=== PATIENT | male | born 1960 | race Caucasian/White ===

== ENCOUNTER 2018-01-23 10:45 | Observation (INO) | payer OTHER ==
[~2018-01-23] VITALS: Ht 182.9 cm; Wt 102.1 kg
[2018-01-23] VITALS (11 sets, daily range): BP systolic 116–147; BP diastolic 67–79
--- NOTE | ~2018-01-23 | H ---
[address] [address] HISTORY AND PHYSICAL Name: PHU WOLFF Room: [address] Alyssa Magallon#: [id number] Admission: 01/23/18 Attend Phys: Herman Galindo MD, Discharge: 01/24/18 Date of : 64 Report #: [id number] THIS REPORT FOR: //name// Please refer to the History and Physical performed in the physician's office. By: 0859Medical Records Staff MARY ANN /PHILIPPE
[~2018-01-23 10:45] MED LIST: ASPIR 8181 MG PO; ATORVASTATIN CA40 MG PO; BRILINTA90 MG PO; COSOPT EYE OPHTHALMIC; EYE MEDICATION; LOPRESSOR25 PO; NITROGLYCERIN0.4 MG SUBLING; ZYLOPRIM 300 MG PO
[2018-01-23 11:33] LABS: HEMATOCRIT 48.2 % (42.0-52.0); HEMOGLOBIN 16.7 gm/dL (14.0-18.0); MCH 32.1 pg (26.0-34.0); MCHC 34.5 g/dL (28.0-37.0); MCV 93.1 fL (80.0-100.0); MPV 7.6 fl. (7.2-11.1); RBC 5.18 mil/uL (4.50-6.00); RDW-CV 13.8 % (10.5-14.5); WBC 5.3 thou/uL (4.0-11.0)
[2018-01-23 11:41] LABS: ANION GAP 9 mmol/L (7-16); BUN 10 mg/dL (7-18); CALCIUM 9.7 mg/dL (8.5-10.1); CHLORIDE 104 mmol/L (98-107); CO2 26 mmol/L (21-32); GLUCOSE 109 mg/dL (70-99); SODIUM 139 mmol/L (136-145)
[2018-01-23 11:43] LABS: APTT 26.7 Seconds (25.0-31.3); INR 1.1; PROTIME 10.3 Seconds (9.20-11.50)
[2018-01-23 11:45] LABS: ALBUMIN 4.2 g/dL (3.4-5.0); ALKALINE PHOSPHATASE 98 U/L (46-116); CHOLESTEROL 145 mg/dL (<200); HDL CHOLESTEROL 33 mg/dL (>40); LDL CHOLESTEROL 41 mg/dL (<100); SGOT 30 U/L (15-37); SGPT 53 U/L (30-65); TC:HDL 4.4 Ratio (Not establshd); TOTAL BILIRUBIN 0.7 mg/dL (<0.1-1.0); TOTAL PROTEIN 8.4 g/dL (6.4-8.2); TRIGLYCERIDE 356 mg/dL (<150); VLDL 71 mg/dL (<40)
[2018-01-23 11:47] LABS: SERUM ASSESSMENT Clear
[2018-01-23] MEDS ORDERED: PLAVIX 75 MG TA75 M1 PO (11:50)
--- NOTE | 2018-01-23 15:23 | EKG ---
[place] [address] ELECTROCARDIOGRAM REPORT Name: PHU WOLFF Room: [address] IN .R.#: [id number] Admission: 01/23/18 Attend Phys: Herman Galindo MD, Discharge: Date of : 64 Report #: [id number] THIS REPORT FOR: //name// [facility] Test Date: 2018-01-23 Test Time: 11:20:35 Pat Name: PHU WOLFF Department: Room: Gender: General Doc: : 1960 Requested By: Herman Galindo Order Number: [id number] Reading MD: Herman Galindo Measurements Intervals [place] Rate: 57 P: 53 DC: 163 QRS: 31 QRSD: 100 T: 58 QT: 425 QTc: 414 Interpretive Statements Sinus rhythm Normal EKG Electronically Signed On 01-23-2018 15:23:38 CDT by Herman Galindo [email or web address] <ELECTRONICALLY SIGNED> By: Herman Galindo MD, [facility] 01/23/18 1523 1120 1120 Herman Galindo MD, FACC /EPI
--- NOTE | 2018-01-23 15:24 | EKG ---
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
--- NOTE | 2018-01-23 18:47 | NUR ---
PT ARRIVED TO ROOM 206 AT APPROX 1420 POST CATH. RIGHT GROIN SITE HAS DRESSING C/D/I, SOFT, NON TENDER, NO BRUISING OR HEMATOMA. VSS, SB ON THE MONITOR IN THE 50'S. PT ON ANGIOMAX ON ARRIVAL INSTRUCTED TO RUN UNTIL [address] GARCIA. ADMISSION ASSESMENT DONE CHARTED. PT USES CALL LIGHT APPROPRIALTY. INSTRUCTED BEDREST UNTIL 2000 TONIGHT. WILL CONTINUE TO MONITOR.
--- NOTE | 2018-01-23 19:30 | NUR ---
RECEIVED REPORT AND ASSUMED CARE OF PT, ASSESSMENT COMPLETED. RT GROIN INTACT, NO DRAINAGE, ECCHYMOSIS OR HEMATOMA. DRSG DRY AND INTACT, AREA SOFT. INSTRUCTED PT ON MONITORING SITE WHEN ALLOWED UP. DENIES CHEST PAIN OR SOB. TELEMETRY ON SHOWING SR. WILL CONT TO MONITOR AND ASSIST NEEDED.
[2018-01-24] VITALS: BP 110/56
[2018-01-24 00:05] VITALS: BP 110/56
[2018-01-24 04:00] VITALS: BP 105/60
[2018-01-24 04:44] LABS: HEMATOCRIT 42.7 % (42.0-52.0); MCH 31.7 pg (26.0-34.0); MCHC 34.2 g/dL (28.0-37.0); MCV 92.8 fL (80.0-100.0); MPV 7.7 fl. (7.2-11.1); RBC 4.6 mil/uL (4.50-6.00); RDW-CV 13.5 % (10.5-14.5); WBC 5.5 thou/uL (4.0-11.0)
[2018-01-24 04:59] LABS: HEMOGLOBIN 14.6 gm/dL (14.0-18.0)
[2018-01-24 05:08] LABS: ALBUMIN 3.4 g/dL (3.4-5.0); CALCIUM 8.8 mg/dL (8.5-10.1); POTASSIUM 4.3 mmol/L (3.5-5.1); TOTAL BILIRUBIN 0.5 mg/dL (<0.1-1.0); TOTAL PROTEIN 6.6 g/dL (6.4-8.2); TROPONIN-I LEVEL 0.08 ng/mL (<0.06)
--- NOTE | 2018-01-24 05:55 | NUR ---
SLEPT WELL TONIGHT. ASSISTED TO BR WITH STEADY GAIT. RT GROIN UNCHANGED, CONT TO HAVE LARGE HEMATOMA. TELEMETRY CONT TO SHOW SR WITH FREQ PAC. HS GOALS OF REST AND COMFORT ACHIEVED. HOURLY ROUNDING OBSERVED.
--- NOTE | 2018-01-24 05:59 | NUR ---
SLEPT WELL TONIGHT. INDEPENDENT BRP WITH STEADY GAIT. RT GROIN REMAINS SOFT WITHOUT INCIDENT. TELEMETRY CONT TO SHOW SB. HS GOALS OF REST AND SAFETY OBTAINED. HOURLY ROUNDING OBSERVED.
[2018-01-24 07:50] VITALS: BP 120/67
--- NOTE | 2018-01-24 07:50 | NUR ---
RECEIVED REPORT FROM VEE AND ASSUMED CARE OF PT @ 8154.PT IS A/O,VSS,TRACING SB ON THE MONITOR.LUNG SOUNDS ARE CLEAR.LAST BM WAS YESTERDAY.IV RIGHT AC PATENT WITH NS RUNNING @ 125ML/HR.PT IS CALM AND COOPERATIVE WITH NO C/O PAIN AT TIME OF ASSESSMENT.PT IS UP ERLIN IN ROOM.PT LEFT RESTING IN BED WITH CALL LIGHT WITHIN REACH.WILL CONTINUE TO MONITOR.FAMILY AT BEDSIDE.
--- NOTE | 2018-01-24 10:31 | CARD ---
[address] [address] CARDIAC CATH REPORT Name: PHU WOLFF Room: [address] ADM IN M.R.#: [id number] Admission: 01/23/18 Attend Phys: Herman Galindo MD, Discharge: Date of : 64 Report #: [id number] THIS REPORT FOR: //name// APPROVED REPORT Study performed: 01/23/2018 12:04:22 Patient Details Patient Status: OP Room #: 206 The patient is a 57 year-old male Event Personnel Herman Galindo Account Support Specialist, Melody Luong, Kevin Gann (Angela Keys Makenzie RN Phosphorus Processing Supervisor Procedures Performed Art Access - R femoral artery* Left Heart Cath w/or w/o Coronaries [id number] [facility] JANESSA Place w/wo Plasty Single LAD 505254 JANESSA Place w/wo Plasty Single Left Main 255140 ; atherectomy of the ostium of the second diagonal branch, Left Ventriculogram Indication Unstable angina Risk Factors Family History, Hypercholesterolemia, Hypertension Previous Procedures/Diagnoses Previous PCI Admission/Lab Medications/Medications given during procedure Aspirin, Platelet Aff. Inhib., Angiomax bolus and infusion Procedure Narrative The patient was brought electively to the Cardiac Catheterization Laboratory and was prepped and draped in a sterile manner. The right femoral was infiltrated with 2% Lidocaine subcutaneous anesthesia. A Winslow 6 FR sheath was inserted into the right femoral artery. Coronary angiography was performed using coronary diagnostic catheters. The right coronary system was accessed and visualized with a Diagnostic 6fr JR 4 catheter. The left coronary system was accessed and visualized with a Diagnostic 6fr JL 4 catheter. The left ventricle was accessed and visualized with a Diagnostic 6fr pigtail catheter. Left ventricular/Aortic Valve gradient assessed via catheter pullback. [place] [address] CARDIAC CATH REPORT Name: PHU WOLFF Room: [address] IN [facility].#: [id number] Admission: 01/23/18 Attend Phys: Herman Galindo MD, Discharge: Date of : 64 Report #: [id number] projection. Pre-demployment femoral angiogram was performed . Closure device was deployed with a 6 Fr Angioseal. The patient tolerated the procedure well and there were no complications associated with the procedure. Intraoperative Conscious Sedation Sedation start time: 12:08 Case end Time: 13:40 Fentanyl 50 mcg Versed 2 mg Fluoro Time: 28.5 minutes Dose: DAP 290440 cGycm2 3252.07 mGy Contrast Type and Amount: Visipaque 700 ml Coronary Angiography The patient's coronary anatomy is right dominant. Diagnostic Cath Left Main 70% proximal stenosis LAD 80% proximal LAD narrowing with 90% mid vessel stenosis Diagonal 2 80% ostial second diagonal narrowing Circumflex 30% mid and distal narrowing of 50% narrowing of the proximal portion of the first marginal branch Right Coronary Large dominant vessel with 30% proximal mid and distal narrowing with 30% narrowing of the proximal portion of the posterolateral branch of the distal right coronary artery Left Ventriculography The left ventricle is normal in size with normal contractility. The left ventricular ejection fraction is estimated to be 60%. Left ventricular wall motion abnormalities are present. There is no mitral insufficiency. Mild anterolateral hypokinesis is noted Hemodynamics The aortic pressure is 122/61 mmHg with a mean of mmHg. The left ventricular pressure is 119/3 mmHg with a mean of mmHg. The left ventricular end diastolic pressure is 14 mmHg. Pullback from the left ventricle to the aorta revealed no gradient across the aortic valve. PCI Technique Lesion Anticoagulation was achieved with Angiomax. Patient was preloaded with Angiomax IV 15 mg per kg. Percutaneous coronary intervention was performed on the second diagnonal branch segment. The lesion stenosis prior to intervention was 80% with YESIKA 3 flow. A 6FR XB 3.0 100CM [place] [address] CARDIAC CATH REPORT Name: PHU WOLFF Room: [address] [place] [facility].#: [id number] Admission: 01/23/18 Attend Phys: Herman Galindo MD, Discharge: Date of : 64 Report #: [id number] Guide Catheter was used to engage the LCA ostium. A IG: BMW 190cm Interventional Guidewire was used to cross the lesion. BALLOON DILATION A Balloon catheter AngioSculpt PTCA 2.0X10mm was inserted and inflated up to 12.00atm for 15seconds. Additional Inflation: 15.00atm for 12seconds. POST STENT DEPLOYMENT BALLOON DILATION A Balloon catheter NC Trek RX 2.25 X 8 was inserted and inflated up to 12.00atm for 10seconds. Additional Inflation: 16.00atm for 14seconds. Additional Inflation: 17.00atm for 16seconds. Final angiography reveals 20 % stenosis with YESIKA 3 flow. POST STENT DEPLOYMENT BALLOON DILATION A Balloon catheter was inserted and inflated up to 8.00atm for 8seconds. PCI Technique Lesion 2 Percutaneous Coronary Intervention was performed on the mid left anterior descending artery segment. The lesion stenosis prior to intervention was 90% with YESIKA 3 flow. A 6FR XB 3.0 100CM Guide Catheter was used to engage the ostium. A IG: ProwaterFlex 180CM Interventional Guidewire was used to cross the lesion. Balloon Dilation A Balloon catheter NC Trek RX 2.25x12 was inserted and inflated up to 8.00atm for 8seconds. Additional Inflation: 8.00atm for 7seconds. Additional Inflation: 16.00atm for 16seconds. 18 BRODERICK X 10 SECONDS 15 BRODERICK X 10 SECONDS 20 BRODERICK X 10 SECONDS Stent Deployment A drug-eluting stent Xience Alpine RX 2.25X12 was inserted and inflated up to 12.00atm for 11seconds. Additional Inflation: 14.00atm for 9seconds. Final angiography reveals 10 % stenosis with YESIKA 3 flow. PCI Technique Lesion 3 Percutaneous Coronary Intervention was performed on the proximal left anterior descending artery segment. The lesion stenosis prior to intervention was 80% with YESIKA 3 flow. A 6FR XB 3.0 100CM Guide Catheter was used to engage the ostium. A IG: ProwaterFlex 180CM Interventional Guidewire was used to cross the lesion. [address] [address] CARDIAC CATH REPORT Name: PHU WOLFF Room: [address] IN M.R.#: [id number] Admission: 01/23/18 Attend Phys: Herman Galindo MD, Discharge: Date of : 64 Report #: [id number] Stent Deployment A drug-eluting stent Xience Alpine RX 2.5X12 was inserted and inflated up to 14.00atm for 10seconds. Final angiography reveals 0 % stenosis with YESIKA 3 flow. PCI Technique Lesion 4 Percutaneous Coronary Intervention was performed on the LM. The lesion stenosis prior to intervention was 70% with YESIKA 3 flow. Stent Deployment A drug-eluting stent Xience Alpine RX 3.5X12 was inserted and inflated up to 14.00atm for 8seconds. Additional Inflation: 16.00atm for 11seconds. Additional Inflation: 18.00atm for 8seconds. Final angiography reveals 0 % stenosis with YESIKA flow. Comments Left main stenting was technically complex by virtue of multiple factors related to stenting an unprotected left main coronary artery. PCI Technique Lesion 5 Percutaneous coronary intervention was performed on the second diagonal branch segment. Balloon Dilation A Balloon catheter AngioSculpt PTCA 2.0X10mm was inserted and inflated up to 10atm for 17seconds. Additional Inflation: 12atm for 20seconds. Conclusion #1 significant multivessel coronary artery disease characterized by the following: A 70% proximal left main coronary artery stenosis B tandem 80% proximal and 90% mid LAD stenosis with 80% narrowing at the takeoff of the second diagonal branch C nondominant circumflex with 30% mid and distal narrowing and 50% narrowing of the proximal first marginal branch D dominant right coronary artery 30% proximal mid and distal narrowings with 30% narrowing of the proximal portion of the [facility] [address] [place] [address] CARDIAC CATH REPORT Name: PHU WOLFF Room: [address] IN M.R.#: [id number] Admission: 01/23/18 Attend Phys: Herman Galindo MD, Discharge: Date of : 64 Report #: [id number] posterolateral branch of the distal right coronary artery #2 normal global left ventricular systolic function, estimated ejection fraction being 60% with subtle anterolateral hypokinesis #3 successful percutaneous coronary intervention with deployment of sequential drug-eluting stents at the sites of 80% proximal and 90% mid LAD stenosis with 0 and 10% residual narrowing following stent deployment #4 successful atherotomy/atherectomy at the site of 80% ostial second diagonal narrowing with 20% residual narrowing following final dilatation #5 successful percutaneous coronary intervention with deployment of a drug-eluting stent at site of 70% proximal left main coronary stenosis with 0% residual narrowing following stent deployment and YESIKA-3 flow to the distal circulation Recommendations Cardiac Risk Reduction Program Aggressive Medical Therapy Medications Administered Aspirin (any) Prasugrel <ELECTRONICALLY SIGNED> By: Herman Galindo MD, [facility] 01/24/18 1031 1031 1031Josummer Galindo MD, FACC /INF
[2018-01-24 11:20] VITALS: BP 117/69
[2018-01-24] MEDS ORDERED: EFFIENT10 MG PO (11:53)
--- NOTE | 2018-01-24 12:13 | NUR ---
PT OK FOR DISCHARGE.PAPERWORK COMPLETED AND GIVEN TO PT.SCRIPT GIVEN WITH EDUCATION.IV REMOVED.HEART MONITOR REMOVED AND RETURNED TO NURSING STATION.ALL PERSONAL BELONGINGS PACKED AND TAKEN WITH PT.PT WALKED DOWN BY NURSING STAFF AND FAMILY TO PERSONAL VEHICLE.
--- NOTE | 2018-01-24 16:32 | EKG ---
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
--- NOTE | 2018-01-25 12:28 | D ---
[address] [address] DISCHARGE SUMMARY Name: PHU WOLFF Room: [address] Alyssa Magallon#: [id number] Admission: 01/23/18 Attend Phys: Herman Galindo MD, Discharge: 01/24/18 Date of : 64 Report #: [id number] THIS REPORT FOR: //name// CC: Herman DEVLIN Derek Mike DATE OF SERVICE: 01/24/2018 LOCATION: The patient is discharged from [facility]. FINAL DISCHARGE DIAGNOSES: 1. Unstable angina. 2. Coronary artery disease. 3. Status post multi-vessel percutaneous coronary intervention with stenting of the left main proximal mid left anterior descending and atherectomy of the ostium of the second diagonal branch. 4. Hypertension. 5. Hyperlipoproteinemia. 6. History of tobacco abuse. PROCEDURES: On 01/23/2018 - left heart catheterization, left ventriculography, selective coronary arteriography, percutaneous coronary intervention with stenting of the proximal left main coronary artery, stenting of the proximal mid LAD and atherectomy of the ostium of the second diagonal branch of the LAD. HOSPITAL COURSE: The patient is a very pleasant 57-year-old male with aggressive coronary artery disease, status post prior stenting of the LAD and right coronary artery one year ago. He presented with recurrent and unstable angina. In this context, I performed cardiac catheterization on 01/23/2018, which revealed 70% ostial proximal left main coronary narrowing, 80% proximal with 90% mid LAD stenosis with 80% ostial second diagonal narrowing. I performed complex intervention with initial atherectomy of the second diagonal, stenting of the proximal and mid LAD with a 2.5 x 12 mm stent, Xience Alpine, placed in the proximal LAD, 2.25 x 12 Xience Alpine in the mid LAD and a 3.5 x 12 mm Xience Alpine in the left main coronary artery, with 0, 0 and 10% residual narrowings on the left main proximal LAD and mid LAD. I performed atherectomy on the ostium of the second diagonal with 20% residual narrowing following final dilatation. The patient did well post-procedurally and ambulated in the hallways without difficulty. There was good hemostasis at the right femoral site of the catheterization. The patient was discharged to home in stable condition on the following medications: Allopurinol 300 mg daily, aspirin 81 mg daily, atorvastatin [address] [place] [address] DISCHARGE SUMMARY Name: ALMAZTAMIAPHU Room: [address] Sherita#: [id number] Admission: 01/23/18 Attend Phys: Herman Galindo MD, Discharge: 01/24/18 Date of : 64 Report #: [id number] daily, dorzolamide and timolol eye drops b.i.d., metoprolol tartrate 12.5 mg b.i.d. and prasugrel 10 mg daily with a 60 mg loading dose. I will plan to see the patient in followup on , 01/30/2018, at our [facility] office at 1340 hours. LABORATORY DATA: Of note, laboratory data on 01/24/2018 revealed hemoglobin of 14.6, white blood cell count of 5500 and platelets of 143,000. Sodium 139, potassium 4.3, BUN 9 and creatinine 1.0. Troponin 0.08. Therefore, the patient is discharged to home in stable condition on the aforementioned medications with followup as iterated above. <ELECTRONICALLY SIGNED> By: Herman Galindo MD, FACC 01/25/18 1228 1002 [id number] Trevin Galindo MD, FACC /nt
== END 2018-01-24 12:38 | disposition home or self-care (01) ==
LOC: M.CL 10:45 → M.TBA-CV 14:01 → M.2W 14:01
PROVIDERS: ADMIT Internal Medicine
DX: I25.110 Atherosclerotic heart disease of native coronary artery with unstable angina pectoris (principal); I10 Essential (primary) hypertension; E78.5 Hyperlipidemia, unspecified; Z87.891 Personal history of nicotine dependence; Z79.01 Long term (current) use of anticoagulants

== ENCOUNTER → 2018-11-06 | Outpatient (CLI) | payer OTHER ==
[~2018-11-06] MED LIST changes: +EFFIENT10 MG PO; +PLAVIX 75 MG TA75 M1 PO
--- NOTE | 2018-11-06 14:33 | CARDNUC ---
[place] [address] CARDIAC NUCLEAR IMAGING REPORT Name: PHU WOLFF Room: [facility]#: [id number] Admission: 11/06/18 Attend Phys: Cynthia Miller Discharge: Date of : 64 Date of Service: 11/06/18 1432 Report #: [id number] THIS REPORT FOR: //name// APPROVED REPORT Study performed: 11/06/2018 08:00:00 Indication: CAD s/p PCI Patient Location: Out-Patient Stress Tech: [facility] Stress Nurse: Rebecca Reynolds RN Ht: 6 ft 0 in Wt: 225 lbs BSA: 2.24 m2 BMI: 30.51 Medical History Medical History: cad, hyperlipidemia Medications: asa 81, lipitor, metoprolol, ntg, effient Allergies: nkda Cardiac Risk Factors: age, hyperlipidemia, Previous Cardiac Procedures: pci Exercise History: Indeterminate Meds Held (24 hrs): metoprolol Resting Data Rest SPECT myocardial perfusion imaging was performed in supine position 30 minutes following the intravenous injection of 12.0 mCi of Tc-99m Sestamibi. Time of rest injection: 08:25 The images were gated to evaluate regional wall motion and calculate left ventricular ejection fraction. Administration Route: IV Administration Site: Right Hand Pharmacologic Stress Pharmacologic stress test was performed by injecting Regadenoson 0.4 mg IV push over 10-15 seconds immediately followed by the intravenous injection of 34.4 mCi of Tc-99m Sestamibi. Time of stress injection: 10:10 Administration Route: IV Administration Site: Right Hand Heart Rate at time of stress injection: 72 bpm. Gated Stress SPECT was performed 40 minutes after stress injection. The images were gated to evaluate regional [place] [address] CARDIAC NUCLEAR IMAGING REPORT Name: PHU WOLFF Room: [facility]#: [id number] Admission: 11/06/18 Attend Phys: Cynthia Miller Discharge: Date of : 64 Date of Service: 11/06/18 1432 Report #: [id number] left ventricular ejection fraction. Prone imaging was performed. Stress Test Details Stress Test: Pharmacologic stress testing performed using 0.4 mg of regadenoson per 5 mL given IV over 10 seconds. Reason for pharmacologic stress test: physical limitation. HR Max Heart Rate (APMHR): 164 bpm Resting HR: 58 bpm Target HR (85% APMHR): 139 bpm Max HR Achieved: 72 bpm % of APMHR: 43 Recovery HR: 64 bpm HR response to stress: Normal HR response to stress BP Resting BP: 137/86 mmHg Max BP: 116/46 mmHg Recovery BP: 139/75 mmHg BP response to stress: Normal blood pressure response to stress. ECG Resting ECG: nsr Stress ECG: nsr ST Change: none Arrhythmia: none Recovery ECG: nsr Recovery ST Change: none Recovery Arrhythmia: none Clinical Reason for Termination: Completed protocol Stress Symptoms: none Exercise duration: 0 min sec Exercise capacity: 1 METs Nurse Comments pt unable to walk on treadmill d/t right hip pain and need for hip replacement. pt became pale and bradycardic during test. placed in supine position. symptoms resolved Stress ECG Conclusion negative ecg portion Study Quality Study: [place] [address] CARDIAC NUCLEAR IMAGING REPORT Name: PHU WOLFF Room: [facility]#: [id number] Admission: 11/06/18 Attend Phys: Cynthia Miller Discharge: Date of : 64 Date of Service: 11/06/18 1432 Report #: [id number] Artifact: Mild Soft tissue attenuation artifact Study Data At rest, the left ventricular ejection fraction was 68%.. Post stress, the left ventricular ejection was 75%.. SSS: 2 SRS: 1 SDS: 1 TID = 1.07. Perfusion Review of rest data reveals normal perfusion, without perfusion defects.Imaging obtained following vasodilator stress demonstrate a similar, uniform uptake of tracer without defects. Prone imaging was normal. LVEDV is normal.No segental wall motion abnormality seen. Wall Motion normal all segments Nuclear Conclusion ECG Findings: negative for ischemia Clinical Findings: negative for ischemia Nuclear Findings: negative for ischemia Exercise Capacity: not assessed Left Ventricular Function: normal Risk Study: low Negative perfusion nuclear stress test for ischemia or infarct. <Conclusion> negative ecg portion <ELECTRONICALLY SIGNED> By: Buzz Jaffe MD, FACC 11/06/18 1432 1432 1432 Buzz Jaffe MD, FACC /INF
== END ==
LOC: M.NUC 05-21 14:25
DX: I25.10 Atherosclerotic heart disease of native coronary artery without angina pectoris (principal); E78.00 Pure hypercholesterolemia, unspecified; I10 Essential (primary) hypertension; Z95.5 Presence of coronary angioplasty implant and graft; Z72.0 Tobacco use

== ENCOUNTER → 2019-12-22 | Outpatient (CLI) | payer OTHER ==
--- NOTE | 2019-12-22 17:34 | CARDNUC ---
[place] [address] CARDIAC NUCLEAR IMAGING REPORT Name: MARIELLAPHU Room: [facility]#: [id number] Admission: 12/22/19 Attend Phys: Cynthia Miller Discharge: Date of : 64 Date of Service: 12/22/19 1733 Report #: [id number] THIS REPORT FOR: cc: Derek Mckeon,Derek Thomas,Goran Alvarez MD [facility] ~ APPROVED REPORT Study performed: 12/22/2019 09:26:31 Exam: Nuclear Stress Test Indication: CAD s/p PCI, CAD s/p IN Patient Location: Out-Patient Stress Tech: Dalia Mitchell Stress Nurse: Vibha Bright Tech:MARCOS Rodriguez Ht: 6 ft 0 in Wt: 227 lbs BSA: 2.25 m2 BMI: 30.78 Medical History Medical History: Bradycardia, CAD s/p stent, CAD s/p IN, Angina, HTN, Hyperlipidemia, Past smoker. Medications: ASA 81 Mg, Atorvastatin, Metoprolol Tartrate, Effient. Allergies: No known drug allergies Cardiac Risk Factors: Age, HTN, Hyperlipidemia, Past Smoker, Bradycardia, IN, PCI. Previous Cardiac Procedures: Myocardial infarction, PCI. Pretest Chest Pain Characteristics: No chest pain Exercise History: Indeterminate Physical Disabilities: Hip replacement, knee pain. Meds Held (24 hrs): Metoprolol Tartrate. Stress Test Details Stress Test: Exercise stress testing was performed using a Chandler protocol. HR Resting HR: 49 bpm Max Heart Rate (APMHR): 163 bpm Max HR Achieved: 146 bpm Target HR (85% APMHR): 138 bpm % of APMHR: 89 Recovery HR: 81 [place] [address] CARDIAC NUCLEAR IMAGING REPORT Name: PHU WOLFF Room: [facility]#: [id number] Admission: 12/22/19 Attend Phys: Cynthia Miller Discharge: Date of : 64 Date of Service: 12/22/19 1733 Report #: [id number] Resting BP: 127/77 mmHg Max BP: 209/85 mmHg ECG Resting ECG: Sinus Rhythm Stress ECG: Sinus Tachycardia ST Change: None Arrhythmia: None Recovery ECG: Sinus Rhythm Recovery ST Change: None Recovery Arrhythmia: None Clinical Reason for Termination: Completed protocol, Maximal effort, Patient Request. Stress Symptoms: Dyspnea, knee pain, fatigue. Exercise duration: 10 min 59 sec Exercise capacity: 11.12 METs Overall Exercise Capacity for Age: Superior The patient exhibited excellent exercise tolerance and tolerated the standard Chandler protocol without significant cardiac symptoms. Nurse Comments A 59 year old male presented for a Chandler Protocol Nuclear Stress test r/t s/p IN and PCI/Stent. Treadmill tolerated to stage 4. Treadmill was modified post Nuclear injection due to patient reporting knee pain. Recovery unremarkable. Patient was escorted by staff to Nuclear Medicine for imaging. Patient was stable and stated he felt good. Stress ECG Conclusion The baseline twelve-lead EKG shows sinus rhythm without significant ST segment or T wave abnormality. EKGs obtained during and post exercise shows sinus rhythm and sinus tachycardia with no significant ST segment or T wave changes when compared to baseline. There were no stress-induced arrhythmias. NM EXAM: Myocardial Perfusion REST/STRESS Imaging Protocol: Rest Tc-99m/Stress Tc-99m 1 day Resting Data Rest SPECT myocardial perfusion imaging was performed in supine position 30 minutes following the intravenous injection of 10.2 mCi of Tc-99m Sestamibi. Time of rest injection: 819 Date: 12/22/2019 The images were gated to evaluate regional wall motion [place] [address] CARDIAC NUCLEAR IMAGING REPORT Name: ALMAZTAMIAPHU Room: [facility]#: [id number] Admission: 12/22/19 Attend Phys: Cynthia Miller Discharge: Date of : 64 Date of Service: 12/22/19 1733 Report #: [id number] left ventricular ejection fraction. Administration Route: IV Administration Site: Right AC Exercise Stress At peak stress, the patient was injected intravenously with 33.2mCi of Tc-99m Sestamibi. Time of stress injection: 949 Date: 12/22/2019 Administration Route: IV Administration Site: Right AC Gated Stress SPECT was performed 30 minutes after stress injection. The images were gated to evaluate regional wall motion and calculate left ventricular ejection fraction. Prone imaging was performed. Study Quality Study: Good Artifact: No artifact Study Data At rest, the left ventricular ejection fraction was 60%.. Post stress, the left ventricular ejection was 71%.. TID = 0.92. Perfusion Perfusion images obtained at rest and post exercise stress showed uniform uptake of the radioisotope throughout the myocardium without defect. Wall Motion Normal left ventricular wall motion. Nuclear Conclusion ECG Findings: negative for ischemia Clinical Findings: negative for ischemia Nuclear Findings: negative for ischemia Exercise Capacity: normal Left Ventricular Function: normal Risk Study: low Perfusion images show no defect to suggest infarct or ischemia. Left ventricular systolic function is normal on gated studies. This is a low risk study. <Conclusion> The baseline twelve-lead EKG shows sinus rhythm [place] [address] CARDIAC NUCLEAR IMAGING REPORT Name: PHU WOLFF Room: [facility]#: [id number] Admission: 12/22/19 Attend Phys: Cynthia Miller Discharge: Date of : 64 Date of Service: 12/22/19 1733 Report #: [id number] segment or T wave abnormality. EKGs obtained during and post exercise shows sinus rhythm and sinus tachycardia with no significant ST segment or T wave changes when compared to baseline. There were no stress-induced arrhythmias. <ELECTRONICALLY SIGNED> By: Goran Mayo MD, FACC 12/22/19 1733 [id number] Goran Mayo MD, FACC /INF
== END ==
LOC: M.NUC 07-09 14:55 → M.CRD 14:00 → M.NUC 14:00
PROVIDERS: ATTEND Internal Medicine
DX: I25.10 Atherosclerotic heart disease of native coronary artery without angina pectoris (principal); Z95.5 Presence of coronary angioplasty implant and graft

== ENCOUNTER → 2021-02-28 | Outpatient (CLI) | payer OTHER ==
[~2021-02-28] MED LIST changes: +CIALIS5 MG PO; +PLAVIX 75 MG TA75 MG PO
--- NOTE | 2021-02-28 16:38 | CARDNUC ---
[place] [address] CARDIAC NUCLEAR IMAGING REPORT Name: PHU WOLFF Shahnaz Room: [facility]#: [id number] Admission: 02/28/21 Attend Phys: Cynthia Miller Discharge: Date of : 64 Date of Service: 02/28/21 1637 Report #: [id number] THIS REPORT FOR: cc: Derek Mckeon,Derek Thomas,Goran Alvarez MD [facility] ~ APPROVED REPORT Imaging Protocol: Stress Tc-99m/Rest Tc-99m 1 day Study performed: 02/28/2021 09:00:00 Indication: Dyspnea on exertion, s/p CAD ME, s/p CAD PCI. Patient Location: Out-Patient Stress Nurse: Leia Koo RN NM Tech:MARCOS Rcohe Ht: 6 ft 0 in Wt: 233 lbs BSA: 2.27 m2 BMI: 31.59 Medical History Medical History: Angina, CAD s/p ME, CAD s/p stent, Dyspnea, hypercholesterolemia, HTN, gout, hip pain-painful gait, past smoker, obesity Medications: ASA 81 mg, Atorvastatin, Clopidogrel, Metoprolol, NTG, Cialis. Allergies: No known drug allergies Cardiac Risk Factors: Age, HTN, Hyperlipidemia, SOB, Past Smoker, obesity. Previous Cardiac Procedures: Myocardial infarction, PCI Pretest Chest Pain Characteristics: No chest pain Exercise History: Indeterminate Physical Disabilities: Hip pain, painful gait. Meds Held (24 hrs): Metoprolol, NTG. Resting Data Rest SPECT myocardial perfusion imaging was performed in supine position 30 minutes following the intravenous injection of 9.3 mCi of Tc-99m Sestamibi. Time of rest injection: 09:10 The images were gated to evaluate regional wall motion and calculate left ventricular ejection fraction. Administration Route: IV Administration Site: [place] [address] CARDIAC NUCLEAR IMAGING REPORT Name: PHU WOLFF Room: [facility]#: [id number] Admission: 02/28/21 Attend Phys: Cynthia Miller Discharge: Date of : 64 Date of Service: 02/28/21 1637 Report #: [id number] Pharmacologic Stress Pharmacologic stress test was performed by injecting Regadenoson 0.4 mg IV push over 10-15 seconds immediately followed by the intravenous injection of 31.6 mCi of Tc-99m Sestamibi. Time of stress injection: 10:35 Administration Route: IV Administration Site: Right Hand Heart Rate at time of stress injection: 80 bpm. Gated Stress SPECT was performed 40 minutes after stress injection. The images were gated to evaluate regional wall motion and calculate left ventricular ejection fraction. Prone imaging was performed. Stress Test Details Stress Test: Pharmacologic stress testing performed using 0.4 mg of regadenoson per 5 mL given IV over 10 seconds. Reason for pharmacologic stress test: Hip pain, painful gait.. HR Max Heart Rate (APMHR): 162 bpm Resting HR: 57 bpm Target HR (85% APMHR): 137 bpm Max HR Achieved: 80 bpm % of APMHR: 49 Recovery HR: 65 bpm BP Resting BP: 148/91 mmHg Max BP: 158/80 mmHg Recovery BP: 165/96 mmHg ECG Resting ECG: Sinus Rhythm Stress ECG: Sinus Rhythm ST Change: None Arrhythmia: None Recovery ECG: Sinus Rhythm Recovery ST Change: None Recovery Arrhythmia: None Clinical Reason for Termination: Completed protocol Stress Symptoms: Dyspnea, flushed. Exercise duration: 00 min 00 sec Exercise capacity: 1.00 METs The patient tolerated Lexiscan infusion [place] [address] CARDIAC NUCLEAR IMAGING REPORT Name: PHU WOLFF Shahnaz Room: [facility]#: [id number] Admission: 02/28/21 Attend Phys: Cynthia Miller Discharge: Date of : 64 Date of Service: 02/28/21 1637 Report #: [id number] Nurse Comments Patient tolerated a sitting Lexiscan well. Patient was stable and stated he felt good when escorted to Nuclear Medicine for imaging. Stress ECG Conclusion The baseline twelve-lead EKG shows sinus rhythm with no significant ST segment or T wave abnormality. EKGs obtained during and post Lexiscan infusion show sinus rhythm with no significant ST segment or T wave changes when compared to baseline. There were no stress-induced arrhythmias. Study Quality Study: Good Artifact: Mild Diaphragmatic artifact Study Data At rest, the left ventricular ejection fraction was 60%.. Post stress, the left ventricular ejection was 64%.. TID = 0.98. Perfusion Perfusion studies obtained in the supine position at rest and post Lexiscan stress show mild photopenia in the inferior wall that resolves completely with post-rest prone imaging consistent with diaphragmatic attenuation artifact. No other significant fixed or reversible defects were identified. Wall Motion Normal left ventricular wall motion. Nuclear Conclusion ECG Findings: negative for ischemia Clinical Findings: negative for ischemia Nuclear Findings: negative for ischemia Exercise Capacity: not assessed Left Ventricular Function: normal Risk Study: low Myocardial perfusion images show no defect to suggest infarct or ischemia. Left ventricular systolic function appears normal on gated studies. This is a low risk study. <Conclusion> The baseline twelve-lead EKG shows sinus rhythm with no significant ST segment or T wave abnormality. EKGs [place] [address] CARDIAC NUCLEAR IMAGING REPORT Name: PHU WOLFF Room: [facility]#: [id number] Admission: 02/28/21 Attend Phys: Cynthia Miller Discharge: Date of : 64 Date of Service: 02/28/21 1637 Report #: [id number] Lexiscan infusion show sinus rhythm with no significant ST segment or T wave changes when compared to baseline. There were no stress-induced arrhythmias. <ELECTRONICALLY SIGNED> By: Goran Mayo MD, FACC 02/28/21 1637 [id number] Goran Mayo MD, FACC /INF
== END ==
LOC: M.NUC 08-11 11:37 → M.CRD 01-24 08:00 → M.NUC 01-24 08:00
PROVIDERS: ATTEND Internal Medicine
DX: I25.119 Atherosclerotic heart disease of native coronary artery with unspecified angina pectoris (principal); E78.00 Pure hypercholesterolemia, unspecified; Z95.5 Presence of coronary angioplasty implant and graft